=== PATIENT | female | born 1985 | race Caucasian/White ===

== ENCOUNTER → 2017-10-02 09:21 | Outpatient (CLI) | payer BC, SELFPAY ==
--- NOTE | 2017-10-02 09:28 | US_ITS ---
STUDY: ULTRASOUND BREAST - LEFT REASON FOR EXAM: Female, 32 years old. Palpable lump left breast. TECHNIQUE: Axial and longitudinal images of the LEFT breast were performed with a high resolution ultrasound transducer. COMPARISON: Comparison is made with prior mammogram done earlier today. FINDINGS: LEFT Breast: The palpable abnormality correspond to a 9 mm x 9 mm x 4 mm cyst at the 2:00 position breast at 3 cm from the nipple. US/Breast Limited Unilateral IMPRESSION: 9 mm x 9 mm x 4 mm cyst at the 2:00 position of the breast at 3 cm from the nipple. ASSESSMENT CATEGORY: BIRADS Category 2: Benign. A letter regarding these results will be sent to the patient by the facility within 30 days. Electronically Signed: Monroe Freeman MD at 13:34 EDT Tel [phone], Service support ,
--- NOTE | 2017-10-02 09:28 | BI_ITS ---
MAMMOGRAPHY - BILATERAL DIAGNOSTIC REASON FOR EXAM: Female, 32 years old. One-week history of left breast lump. PERTINENT HISTORY: Grandmother with breast cancer. TECHNIQUE: Digital bilateral breast ramona (3D mammographic acquisition) in the CC and MLO projections. 2-D mediolateral oblique (MLO) and craniocaudad (CC) views of both breasts were obtained. CAD: Full Field Digital Mammography with Computer Added Detection was performed. COMPARISON: None. Baseline examination. FINDINGS: Breast Composition: The breasts are heterogeneously dense, which may obscure small masses. There are no dominant masses or suspicious calcifications. Benign-appearing bilateral axillary lymph nodes. No other significant abnormalities are identified. BI/DIAG MAMM W/CAD, BILAT IMPRESSION: Negative diagnostic mammogram. With the patient's history of a palpable abnormality in the left breast, correlation with ultrasound is recommended. ASSESSMENT CATEGORY: BIRADS Category 0: Incomplete. Need additional imaging evaluation. A letter regarding these results will be sent to the patient by the facility within 30 days. Approximately 10% of breast cancers are not detected by mammography. A normal mammogram should not delay biopsy of a clinically suspicious abnormality. Electronically Signed: Monroe Freeman MD at 13:52 EDT Tel [phone], Service support ,
== END ==
PROVIDERS: Family Provider Family Medicine; PCP Family Medicine; Visit Provider Nurse Practitioner Women's Health
DX: N63.20 Unspecified lump in the left breast, unspecified quadrant (principal); Z80.3 Family history of malignant neoplasm of breast
CPT/HCPCS: 76642; 77062; 77066; G0279

== ENCOUNTER 2019-09-16 10:28 | Day surgery (SDC) | payer OTHER, SELFPAY ==
--- NOTE | 2019-09-10 12:17 | PCM.HP.BLA ---
History and Physical Date of Admission: 09/16/19 HPI: The patient is a 34 year old female presenting for pre-operative visit. She is scheduled for?Hysteroscopy D&C, for??Abnormal uterine bleeding and endometrial polyp on?09/16/2019. ??Procedure discussed along with risks, benefits and complications. ?Other alternatives discussed for management. Consent form signed??Yes.? PAST MEDICAL HISTORY PAST MEDICAL HISTORY Diagnosis Date ? Adjustment disorder with mixed anxiety and depressed mood 06/02/2015 ? Hypertension ? ? Gestational ? Infectious mononucleosis 2005 ? Infertility female ? ? ? PAST SURGICAL HISTORY PAST SURGICAL HISTORY Procedure Laterality Date ? APPENDECTOMY ? ? ? DELIVERY ONLY ? 11/25/11, 06/24/14 ? , low transverse,stat tachycardia ? D&C, DIAG AND/OR THERAPEUTIC ? ? ? Dilation & curettage ? L'SCOPE DX W/WO BRUSHINGS/WASHINGS ? 01/2010 ? Laparoscopy, uterine polyps removed ? LAP CHOLECYSTECT/CHOLANGIOGRAPHY ? 07/13/12 ? REMOVAL OF TONSILS,<12 Y/O ? ? ? Tonsillectomy ? ? CURRENT MEDICATIONS Current Outpatient Medications Medication Sig Dispense Refill ? MULTIVITAMIN ORAL Take by mouth. ? ? ? Etonogestrel-Ethinyl Estradiol 0.12-0.015 mg/24 hr vaginal ring USE 1 EACH VAGINALLY DIRECTED. LEAVE RING FOR 24 DAYS, REMOVE FOR 4 DAYS AND REPEAT 3 Each 0 ? No current facility-administered medications for this visit.? ? ALLERGIES:?Amoxicillin ? PERSONAL HISTORY:? SOCIAL HISTORY Social History ? Tobacco Use ? Smoking status: Never Smoker ? Smokeless tobacco: Never Used Substance Use Topics ? Alcohol use: Yes ? ? Comment: occasionally, NOT WHILE ? Drug use: No ? FAMILY HISTORY:? FAMILY HISTORY FAMILY HISTORY Problem Relation Age of Onset ? Cancer Mother ?Skin ? other (depression) Mother ? ? Breast Cancer Maternal Grandmother ? ? other (depression) Maternal Grandmother ? ? Cancer Paternal Uncle ?Lung ? REVIEW OF SYMPTOMS: GENERAL: denies fevers or chills ENDOCRINOLOGY: has not been on steroids Cardiology : denies palpitations or chest pain Respiratory: denies SOB or cough Hematology: denies history of prolonged bleeding or easy bruising or VTE Allergy: Denies history of personal or family history of allergy to anesthesia ? ? PHYSICAL EXAMINATION: ? VITALS:?Blood pressure 132/82, height 5' 5.5 (1.664 m), weight 239 lb (108.4 kg), last menstrual period 08/19/2019. ? GENERAL:??The patient is well nourished, well hydrated in no acute distress. ?, The patient is oriented to time, place, and person. NECK:?Supple. No lynphadenopathy, normal thyroid, no thyromegaly. LUNGS:?Clear to auscultation bilaterally. no wheezes, rhonchi or rales HEART:?Regular rate and rhythm, Normal heart sounds and No murmurs or gallops ? ? IMPRESSION:?Abnormal uterine bleeding, endometrial polyp on ultrasound ? PLAN:???The risks/benefits/alternatives and personal involved for the planned?hysteroscopy D&C with polyp resection?were reviewed with the patient. Her questions were answered to her satisfaction and she desires to proceed. ?Consent was signed. ?I reviewed with her postop instructions and expectations. ? ? I have reviewed and updated past medical and surgical history, medications and allergies. This history and physical was completed in my office on 09/08/2019. Procedure Criteria Procedure Type: Elective COVID Risk Discussion: The surgeon/proceduralist and patient have discussed in detail the risk of exposure to and/or potential harm posed by the COVID-19 virus with having a surgery/procedure at this time versus the risk of delaying the surgery/procedure. It is not possible to know either the risk of delaying the surgery or procedure or chance of getting an infection with perfect accuracy, but a joint decision was made between the patient and the surgeon/proceduralist to proceed at this time with the scheduled surgery/procedure as indicated on the consent form.
[2019-09-16] VITALS (9 sets, daily range): BP systolic 111–131; BP diastolic 66–86; PULSE 60–78; RESP 15–16; TEMP 36.8–37.2; O2SAT 97–100; BMI 39.6
[2019-09-16 10:55] LABS: Hematocrit 45.4 % (37-47); Hemoglobin 14.2 g/dL (12.0-15.0); Mean Corp Hgb Conc 31.3 g/dL (32-36); Mean Corpuscular Hgb 26.9 pg (27.0-32.0); Mean Corpuscular Volume 86.1 fL (81-99); Mean Platelet Vol. 10.1 fl (6.2-12.0); Platelet Count 262 K/mm3 (150-450); RBC Distribution Width CV 12.6 % (11.6-14.6); RBC Distribution Width SD 39.6 fl (35.1-43.9); Red Blood Count 5.27 M/mm3 (4.2-5.4); White Blood Count 7.4 K/mm3 (4.4-11.0)
[2019-09-16 11:03] LABS: Internal QC Validated? YES +Cl - CLEAR BKGD; Pregnancy, Urine Negative Negative
[2019-09-16] MEDS: Lactated Ringers 1,000 ML 100 ML IV (11:05)
[2019-09-16] MEDS: Acetaminophen 500 MG Tablet 1000 MG PO (11:13)
[2019-09-16] MEDS: Ketorolac 30 MG/ML Syringe IV (11:13)
--- NOTE | 2019-09-16 12:00 | EMB_PTH ---
PATIENT: MITRA ROWLAND [place] [facility] [place][id number] AGE/SX: 34/F ROOM: RE09/16/[address]: Dr. Amaya Head MD : [id number] BED: DIS: 09/16/2019 SPEC #: [id number] RECD: 09/16/19 13:27 STATUS: BRANT CODY #: [id number] GOMEZ: 09/16/19 12:[address]: Amaya Head DEPT: SURGICAL PATHOLOGY RECD BY: Kushal Fox ENTERED: 09/16/19 13:36 SP TYPE: ENDOM BX/C OTHR DR: Dr. Ever Block MD Tissues: Endometrium, NOS Procedures: Surgery Specimen Level IV HEADER OPERATION: Hysteroscopy, D & C Symphion PRE-OP DIAGNOSIS: Abnormal uterine bleeding, thickened TISSUE SUBMITTED: Endometrial curettings MICROSCOPIC DIAGNOSIS Endometrial curettings: Proliferative endometrium. Superficial fragments of myometrium. SJ:cally 09/20/19 MICROSCOPIC DESCRIPTION Slides are reviewed. GROSS DESCRIPTION Received in fixative is one container labeled with the patient's name and designated endometrial curettings. The specimen consists of multiple irregular fragments of jasmine soft tissue mixed with blood clot that in aggregate measure 3 x 2.5 x 0.3. The specimen is totally submitted in one cassette. / TAWANNA:cally 09/17/19 TC:4 CPT: 86335
--- NOTE | 2019-09-16 12:04 | DCINST_ITS ---
Discharge Diet: No Restrictions Discharge Activity: Return to Normal Activity, May Shower, May Take a Tub Bath - in 2 weeks. May shower in (days): 1 May resume sexual activity in: 1 week Call your doctor if your incision/area has: Continuous Slow Oozing, Foul Sm elling Discharge Call your doctor if you observe: Fever of 101 or Higher, Using more than one pad per hour, Uncontrolled pain Allergies/Adverse Reactions: Allergies amoxicillin [Amoxicillin] Allergy (Verified 09/16/19 10:47) Hives Medications to take at Discharge Multivitamin with Minerals [Multiple Vitamin] 1 ea PO DAILY 09/13/19 Primary Care Physician: Ever Block MD [Primary Care Provider] - Test Results: Test results from this visit will be discussed in further detail at your follow- up appointment, if applicable. Please Follow Up With: Amaya Head MD - [phone] When: as needed, my office will contact you with the pathology in 7-10 days
--- NOTE | 2019-09-16 12:39 | OP.PCM_ITS ---
Report of Operation Date of Procedure: 09/16/19 Pre-Operative Diagnosis: thickened endometrium, Abnormal uterine bleeding Post-Operative Diagnosis: same Surgery/Procedure Performed:: hysteroscopy with dilation and curettage with SYmphion device Description of Surgical Findings:: normal endometrium, polypod appearing lesion in the cervical canal windows systems admin: None Type of Anesthesia:: MAC/Supplemental/Local Anesthesiologist: Tima Crocker Special Medications: none Specimen's removed: endometrial curettings Drains: none Estimated Blood Loss (mL): 5 Fluids Replaced: 700 Description of Procedure: The patient was taken to the OR where she was prepped and draped in dorsal lithotomy position. The weighted speculum was placed in the vagina and the anterior lip of the cervix was grasped with a single-tooth tenaculum. A paracervical block was administered with [1% lidocaine with 1-200,000 epinephrine solution]. The cervix was dilated serially with Hegar dilators. The Symphion hysteroscope was placed into the uterine cavity and the above findings were noted. Bilateral tubal ostia [were] identified. The symphion device was readied and inserted. A visual D&C was done of the endometrial cavity. The polypoid appearing lesion in the endocervical canal was removed. The instruments were removed from the vagina. The specimen was handed off and sent to pathology. All sponge and needle counts were correct. Vaginal sweep was performed by me. The patient was awakened and taken to the recovery room in stable condition. Hysteroscopic ins: 400cc normal saline calculated Grafts/Implants Used: none - Complications none - Admit VTE Documentation VTE Mechan Device Prophylaxis: SCD's VTE Pharm Prophylaxis ordered?: No Reason prophylaxis not ordered:: Procedure Not Indicated
== END 2019-09-16 13:59 | disposition home or self-care (01) ==
LOC: SDC 10:31 → AC 10:34
PROVIDERS: PCP Family Medicine; Referring Provider Obstetrics & Gynecology; Visit Provider Obstetrics & Gynecology
PROC: 0UB98ZZ Excision of Uterus, Via Natural or Artificial Opening Endoscopic (ICD-10-PCS; CPT 58558; principal; 2019-09-16 11:45)
DX: N93.9 Abnormal uterine and vaginal bleeding, unspecified (principal); R93.89 Abnormal findings on diagnostic imaging of other specified body structures; Z11.59 Encounter for screening for other viral diseases
CPT/HCPCS: 00952; 58558; 81025; 85027; 87635; 88305; G2023; J7120; J3490; U0003